=== PATIENT | male | born 1975 | race Two or more races ===

== ENCOUNTER 2020-11-25 12:03 | Emergency (ER) | payer MEDICAID ==
--- NOTE | 2020-11-25 12:46 | EDM.PDOCBH ---
ED HPI GENERAL MEDICAL PROBLEM - General Stated Complaint: METAL HEALTH Time Seen by Provider: 11/25/20 12:10 Source of Information: Reports: Patient, Family, Police - History of Present Illness INITIAL COMMENTS - FREE TEXT/NARRATIVE: c/o mental health issues reports pt has been restless all week, and pt have been together for 8y, yet pt does not know who she is, says his is buried under the trailer, says she is a stranger, that someone else is wearing her skin h/o meth use, last used 4d ago, drank one wine cooler yesterday, smoked THC yesterday, smokes THC days no children, not working and sister are her pt's father 2w ago, from [facility] in [place], sister went to the , pt did not, sister reports pt has not been in his right mind in the one wk since she has been back last night pt turned off the water to the trailer, then disappeared called police who escorted him here to ED, pt had gone across street and told an employee to call 911, was confused, did not know where his was denies SI/HI pt not agitated her, did talk to [address] police officer at some length, officer said that pt sees him as a friend, officer has dealt with pt re meth issues in past, not in past yr no prior mental health issues per pt//police - Related Data Allergies Allergy/AdvReac Type Severity Reaction Status Date / Time No Known Allergies Allergy Verified 11/25/20 12:35 Home Meds: Home Meds Metoprolol Succinate [Toprol XL 50mg] 50 mg PO ONETIME #14 tab.er 12/02/13 [Rx] chlordiazePOXIDE [Librium] 25 mg PO 21 PRN #21 cap 12/02/13 [Rx] Past Medical History - Past Health History Medical/Surgical History: Denies Medical/Surgical History ED ROS GENERAL - Review of Systems Review Of Systems: See Below Constitutional: Reports: No Symptoms HEENT: Reports: No Symptoms Respiratory: Reports: No Symptoms Cardiovascular: Reports: No Symptoms Endocrine: Reports: No Symptoms GI/Abdominal: Reports: No Symptoms : Reports: No Symptoms Musculoskeletal: Reports: No Symptoms Skin: Reports: No Symptoms Neurological: Reports: No Symptoms Psychiatric: Reports: Anxiety, Confusion, Hallucinations, Mood Lability Hematologic/Lymphatic: Reports: No Symptoms Immunologic: Reports: No Symptoms ED EXAM, BEHAVIORAL HEALTH - Physical Exam Exam: See Below General Appearance: Alert, WD/WN, Other (pt sitting calmly on edge of bed, good eye contact, no agitation, not withdrawan, no shakes, answers in complete sentences, introduced his and sister by first name, did not know 's last name) Psychiatric: Alert, Restless, Inattentive, Phobic, Paranoid Thoughts, Other (mild anxiety, difficulty concentrating, distraction, no physical agitation although thoughts appear to be racing, nonlinear thinking at times, paranoia and delusions for past week). No: Pressured Speech, Threatening Behavior Skin Exam: Warm, Dry, Intact, Normal color, No rash, Tattoo(s) Comments: has some confusion, said his father in 2006, then corrected himself to November 11 (which was correct), thought his father had Alzheimer's, which is correct #1 Interpretation EKG Date: 11/25/20 Time: 12:52 Rhythm: NSR (NSR 71, no acute changes) COURSE, BEHAVIORAL HEALTH COMP - Course Vital Signs: Last Vital Signs Temp 36.6 C 11/25/20 12:40 Pulse 83 11/25/20 12:40 Resp 18 11/25/20 12:40 BP 160/97 H 11/25/20 12:40 Pulse Ox 96 11/25/20 12:40 Orders, Labs, Meds: Active Orders 24 hr Category Date Time Status EKG Documentation Completion [RC] ASDIRECTED Care 11/25/20 12:16 Active Head wo Cont [CT] Stat Exams 11/25/20 14:50 Taken CORONAVIRUS COVID-19 CAMILO [MOLEC] Stat Lab 11/25/20 15:50 Ordered DRUG SCREEN, URINE ALERE [URCHEM] Stat Lab 11/25/20 12:13 Ordered UA W/MICROSCOPIC [URIN] Stat Lab 11/25/20 12:13 Ordered EKG 12 Lead [EK] Routine Ther 11/25/20 12:13 Ordered Laboratory Tests 11/25/20 11/25/20 11/25/20 Range/Units 12:36 12:36 12:36 WBC 5.2 (3.2-10.1) x10-3/uL RBC 4.73 (3.90-5.90) x10(6)uL Hgb 14.0 (12.9-17.7) g/dL Hct 41.5 (38.3-50.1) % MCV 87.7 (80.8-98.7) fL MCH 29.7 (27.0-33.3) pg MCHC 33.9 (28.7-35.3) g/dL RDW 12.9 (12.4-15.0) % Plt Count 204 (117-477) x10(3)uL MPV 8.1 (6.7-11.0) fL Neut % (Auto) 60.4 (40.3-71.8) % Lymph % (Auto) 29.7 (15.8-45.3) % Wilkes % (Auto) 7.1 (5.5-15.2) % Eos % (Auto) 2.2 (0.1-6.8) % Baso % (Auto) 0.6 (0.3-3.8) % Neut # (Auto) 3.2 (1.7-6.9) x10-3/uL Lymph # (Auto) 1.6 (0.5-4.5) x10-3/uL Wilkes # (Auto) 0.4 (0.0-1.2) x10-3/uL Eos # (Auto) 0.1 (0.0-0.6) x10-3/uL Baso # (Auto) 0.0 (0.0-0.3) x10-3/uL Sodium 150 H (135-145) mmol/L Potassium 4.2 (3.5-5.3) mmol/L Chloride 111 H (100-110) mmol/L Carbon Dioxide 29 (21-32) mmol/L BUN 12 (7-18) mg/dL Creatinine 1.1 (0.70-1.30) mg/dL Est Cr Clr Drug Dosing TNP Estimated GFR (MDRD) > 60 (>60) BUN/Creatinine Ratio 10.9 (9-20) Glucose 114 (80-116) mg/dL Calcium 8.0 L (8.6-10.2) mg/dL Total Bilirubin 0.7 (0.1-1.3) mg/dL AST 27 H (5-25) IU/L ALT 28 (12-36) U/L Alkaline Phosphatase 68 (56-112) IU/L Troponin I 5.1 (4.0-60.3) pg/mL C-Reactive Protein < 0.2 L (0.5-0.9) mg/dL Total Protein 6.8 (6.0-8.0) g/dL Albumin 3.5 (3.5-5.2) g/dL Globulin 3.3 g/dL Albumin/Globulin Ratio 1.1 TSH, Ultra Sensitive 1.06 (0.36-3.74) IU/mL Salicylates < 2.8 L (<2.8) mg/dL Acetaminophen < 2 L (<2) ug/mL Ethyl Alcohol < 0.03 (<0.03) % 11/25/20 Range/Units 15:32 WBC (3.2-10.1) x10-3/uL RBC (3.90-5.90) x10(6)uL Hgb (12.9-17.7) g/dL Hct (38.3-50.1) % MCV (80.8-98.7) fL MCH (27.0-33.3) pg MCHC (28.7-35.3) g/dL RDW (12.4-15.0) % Plt Count (117-477) x10(3)uL MPV (6.7-11.0) fL Neut % (Auto) (40.3-71.8) % Lymph % (Auto) (15.8-45.3) % Wilkes % (Auto) (5.5-15.2) % Eos % (Auto) (0.1-6.8) % Baso % (Auto) (0.3-3.8) % Neut # (Auto) (1.7-6.9) x10-3/uL Lymph # (Auto) (0.5-4.5) x10-3/uL Wilkes # (Auto) (0.0-1.2) x10-3/uL Eos # (Auto) (0.0-0.6) x10-3/uL Baso # (Auto) (0.0-0.3) x10-3/uL Sodium 148 H (135-145) mmol/L Potassium 4.6 (3.5-5.3) mmol/L Chloride 107 (100-110) mmol/L Carbon Dioxide 33 H (21-32) mmol/L BUN 15 (7-18) mg/dL Creatinine 1.2 (0.70-1.30) mg/dL Est Cr Clr Drug Dosing 78.56 Estimated GFR (MDRD) > 60 (>60) BUN/Creatinine Ratio 12.5 (9-20) Glucose 84 (80-116) mg/dL Calcium 8.3 L (8.6-10.2) mg/dL Total Bilirubin (0.1-1.3) mg/dL AST (5-25) IU/L ALT (12-36) U/L Alkaline Phosphatase (56-112) IU/L Troponin I (4.0-60.3) pg/mL C-Reactive Protein (0.5-0.9) mg/dL Total Protein (6.0-8.0) g/dL Albumin (3.5-5.2) g/dL Globulin g/dL Albumin/Globulin Ratio TSH, Ultra Sensitive (0.36-3.74) IU/mL Salicylates (<2.8) mg/dL Acetaminophen (<2) ug/mL Ethyl Alcohol (<0.03) % Re-Assessment/Re-Exam: 3:16p pt placed on a 72-hour hold at d/w behavioral health identity management consultant at [facility] at 2:30p who said pt tested 9/20 on depression scale, no SI/HI, no agitation, did show paranoia and delusions and torres llucinations, she is working on placement head CT without contrast and urine specimen pending and sister and son are at bedside and are in agreement with hospitalization, they all do not think pt is safe to be at home or get outpatient treatment there is no clinical evidence of trauma or infection or meth/drug toxicity, 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 7p Chloe Arnold reviewing pt's records, head CT neg, COVID not needed without sxs as per [facility], pt has had 3 liters of fluids to drink, Na dec'd 150 to 148 after 2 liters, pt has eaten supper, still on 72-hour hold, pt not provided a urine specimen yet, police friend has not come by for a visit as per pt request as he is the only one on duty altho he does plan to stop by this evening signed out to Dr Griffiths at change of shift Departure - Departure Time of Disposition: 19:01 Disposition: Still A Patient 30 Clinical Impression: Paranoia, Psychosis, Abnormal grief reaction, Methamphetamine use, Marijuana use - Discharge Information *PRESCRIPTION DRUG MONITORING PROGRAM REVIEWED*: Not Applicable *COPY OF PRESCRIPTION DRUG MONITORING REPORT IN PATIENT CHRIS: Not Applicable Referrals: Dionicio Griffiths MD [Primary Care Provider] - Sepsis Event Note (ED) - Focused Exam Vital Signs: Vital Signs Temp Pulse Resp BP Pulse Ox 11/25/20 12:40 36.6 C 83 18 160/97 H 96 - My Orders Last 24 Hours: My Active Orders 11/25/20 12:13 DRUG SCREEN, URINE ALERE [URCHEM] Stat UA W/MICROSCOPIC [URIN] Stat EKG 12 Lead [EK] Routine 11/25/20 12:16 EKG Documentation Completion [RC] ASDIRECTED 11/25/20 14:50 Head wo Cont [CT] Stat 11/25/20 15:50 CORONAVIRUS COVID-19 CAMILO [MOLEC] Stat - Assessment/Plan Last 24 Hours: My Active Orders 11/25/20 12:13 DRUG SCREEN, URINE ALERE [URCHEM] Stat UA W/MICROSCOPIC [URIN] Stat EKG 12 Lead [EK] Routine 11/25/20 12:16 EKG Documentation Completion [RC] ASDIRECTED 11/25/20 14:50 Head wo Cont [CT] Stat 11/25/20 15:50 CORONAVIRUS COVID-19 CAMILO [MOLEC] Stat
[2020-11-25 13:12] LABS: ACETAMINOPHEN < 2 ug/mL (<2)
== END 2020-11-25 20:35 ==
LOC: FB.ED 12:03
DX: F22 Delusional disorders (principal); F12.90 Cannabis use, unspecified, uncomplicated; F15.90 Other stimulant use, unspecified, uncomplicated
CPT/HCPCS: 36415; 70450; 80048; 80053; 80143; 80179; 80305-QW; 80307; 81001; 84443; 84484; 85025; 86140; 93005; 99285-25